=== PATIENT | male | born 1965 | race African-American/Black ===

== ENCOUNTER 2024-06-08 08:17 | Emergency (ER) | payer OTHER ==
[~2024-06-08] VITALS: Ht 185.4 cm; Wt 91.0 kg
[2024-06-08 08:29] VITALS: O2SAT 99
[2024-06-08 09:00] LABS: BASOPHILS % 0.4 % (0.0-2.0); EOSINOPHILS % 0.2 % (0.0-5.0); HEMATOCRIT. 44.9 % (42.0-52.0); HEMOGLOBIN. 14.4 g/dL (14.0-18.0); LYMPHOCYTES % 10.4 % (20.0-50.0); MEAN CORPUSCULAR HEMOGLOBIN 26.8 pg (28.0-32.0); MEAN CORPUSCULAR VOLUME 83.9 fL (80.0-94.0); MEAN PLATELET VOLUME 7.6 fl (7.4-10.4); MONOCYTES % 7.3 % (2.0-8.0); NEUTROPHILS % 81.7 % (40.0-76.0); PLATELET 285 x1000/uL (130-400); RED BLOOD CELL COUNT 5.36 mill/uL (4.7-6.1); RED CELL DISTRIBUTION WIDTH 15.2 % (11.6-14.6); WHITE BLOOD COUNT 10.4 x1000/uL (4.5-11.0)
[2024-06-08 09:17] LABS: CHLORIDE 108 mEq/L (98-107); SODIUM 140 mEq/L (136-145)
[2024-06-08 09:18] LABS: CALCIUM 9.4 mg/dL (8.7-10.4); CARBON DIOXIDE 23 mEq/L (21-32)
[2024-06-08 09:23] LABS: GLUCOSE 100 mg/dL (70-105); UREA NITROGEN BLOOD 12 mg/dL (9-23)
[2024-06-08 09:24] LABS: TROPONIN I HIGH SENSITIVITY 26 ng/L (3.0-53)
[2024-06-08] MEDS: ASPIRIN 81MG TABLET PO NR (09:45)
[2024-06-08 10:48] LABS: TROPONIN I HIGH SENSITIVITY 21 ng/L (3.0-53)
[2024-06-08 13:06] VITALS: BP 148/89; PULSE 87; RESP 16; TEMP 36.89184; O2SAT 98
== END 2024-06-08 13:07 | disposition short-term general hospital (02) ==
LOC: ER 08:17
DX: R07.89 Other chest pain (principal); I10 Essential (primary) hypertension
CPT/HCPCS: 80048; 85025; 84484; 36415; 71045; 93005; 99285; Z7610